=== PATIENT | female | born 2000 | race Caucasian/White ===

== ENCOUNTER 2025-03-26 22:33 | Emergency (ER) | payer OTHER ==
[~2025-03-26] VITALS: Ht 172.7 cm; Wt 87.5 kg
[2025-03-26 23:08] VITALS: BP 117/78; PULSE 76; TEMP 98.2; O2SAT 99
--- NOTE | 2025-03-26 23:58 | Physician Documentation ---
History of Present Illness ~ Chief Complaint: Hand pain Stated Complaint: HAND PAIN Time Seen by MD: 23:39 Source: patient Mode of Arrival: POV Exam Limitations: no limitations HPI 24-year-old female was cleaning jalapeno peppers for a cheddar jalapeno sour dough this morning when her hands began to burn. Her hands have been burning for several hours she has tried milk as well as aloe to neutralize the capsaicin but has not been able to do so. She has never experienced pain from cleaning all opinions in the past Medication Reconciliation Allergies: Uncoded Allergies: PENICILLIN (Allergy, Unknown, 03/26/25) Past Medical History Past Medical History: No Pertinent History Review of Systems All Other Systems at this time: Reviewed and Negative Integumentary: Reports: see HPI Physical Exam Vital Signs: RN Vital Signs have been reviewed: Yes, Temperature: 98.2, Heart Rate: 76, Respiratory Rate: 16, BP: 117/78, Pulse Oximetry: 99, Weight: 87.500 Oxygen Flow Rate: 0 Physical Exam General: Alert, no apparent distress. HEENT: moist mucous membranes. Neck: Full range of motion. Respiratory: No respiratory distress speaking in full sentences Chest: No accessory muscle use. Cardiovascular: Appears well perfused Neurologic: Oriented x4. Psychiatric: Normal mood and affect. Skin: Sensation of burning hands no obvious erythema or mosquera due to capsaicin Progress Results/Orders Results/Orders Orders - PATI CHANEY WELCOME HOSTESS Lidocaine 2% Viscous (Xylocaine 2% Visco (03/26/25 23:50) Completed Orders - PATI CHANEY WELCOME HOSTESS Diazepam Tablet (Valium Tablet) (03/26/25 23:50) Vital Signs 03/26/25 23:08 Temp 98.2 Pulse 76 Resp 16 B/P (MAP) 117/78 Pulse Ox 99 O2 Flow Rate 0 Medical Decision Making Findings Lidocaine viscous with potentially placing clothes on to help neutralize the burning from cleaning peppers at home. Valium to help reduce anxiety and pot entially help her sleep tonight. Departure Time of Disposition: 23:57 Disposition: 01 HOME / SELF CARE / HOMELESS Impression: Primary Impression: Hand pain Condition: Stable Discharge Instructions: Hand Pain Additional Instructions: Follow up with primary care as needed Referrals: NO PRIMARY CARE PROVIDER (PCP) Education Educated: Patient Educated regarding: diagnosis, treatment, need for follow up Signature Scribe Signature: No scribe Attestation: The note accurately reflects work and decisions made by me.Pati CARRION 03/26/25 23:57 PATI CHANEY NP Mar 26, 2025 23:57
[2025-03-27] MEDS: LIDOcaine 2% Viscous 15ml cup TP PRN (00:04)
[2025-03-27 00:05] VITALS: RESP 24
== END 2025-03-27 00:21 | disposition home or self-care (01) ==
LOC: ER 22:35
DX: M79.643 Pain in unspecified hand (principal)
CPT/HCPCS: 99283